=== PATIENT | female | born 1940 | race Caucasian/White ===

== ENCOUNTER 2020-04-09 09:56 | Inpatient (IN) ==
[2020-04-09] MEDS ORDERED: methylPREDNISolone SOD SUC 125 MG/2 ML VIAL IV STA (10:22)
[2020-04-09] MEDS ORDERED: ALBUTEROL/IPRATROPIUM 3 ML NEB RESP TX STA (10:22)
[2020-04-09 10:30] LABS: Basophils # 0.1 10*3/uL (0.0-0.2); Basophils % 0.6 % (0.0-0.8); Eosinophils % 0.2 % (0.00-10.9); Hematocrit 36.6 VOL% (35.7-47.0); Hemoglobin 11.7 GM/DL (12.0-16.0); Immature Granulocytes % 0.4 %; Immature Granulocytes Absolute 0.04 #; Lymphocytes # 0.2 10*3/uL (1.4-4.0); Lymphocytes % 2.3 % (21.3-54.2); Mean Corpuscular Volume 89.1 FL (87-102); Mean Platelet Volume 9.8 FL (9.6-12.0); Monocytes % 0.5 % (1.7-12.7); Platelet Count 313 T/CUMM (130-400); Red Blood Count 4.11 MC/CUMM (3.8-5.5); Red Cell Distribution Width 14.8 % (9.3-17.3); White Blood Count 9.5 T/CUMM (4-12)
[2020-04-09 11:44] LABS: Band Neutrophils 10 % (0-10); Lymphocytes 4 % (20-55); Metamyelocytes 1 %; Segmented Neutrophils 84 % (50-85); Total Cells Counted 100
[2020-04-09 11:45] LABS: Hypochromasia 1+; Microcytosis Slight
[2020-04-09 11:48] LABS: Platelet Estimate Normal
[2020-04-09 12:40] LABS: Albumin 3.4 G/DL (3.4-5.0); Bilirubin,Total 0.8 MG/DL (0.2-1.0); Calcium 8.5 MG/DL (8.5-10.1); Osmolality,Calculated 279.5 MOS/KG (273-304); Potassium 3.6 MMOL/L (3.5-5.1); Total Protein 6.4 G/DL (6.4-8.3)
[2020-04-09] MEDS ORDERED: ACETAMINOPHEN 500 MG TABLET ONE (14:22)
[2020-04-09] MEDS ORDERED: ONDANSETRON 4 MG/2 ML VIAL IV PRN (14:35)
[2020-04-09] MEDS ORDERED: MAGNESIUM SULF RIDER 2 GM in PREMIX 1 EACH IV PRN (14:35)
[2020-04-09] MEDS ORDERED: MAGNESIUM SULF RIDER 4 GM in PREMIX 1 EACH IV PRN (14:35)
[2020-04-09] MEDS ORDERED: ALBUTEROL 2.5 MG/3 ML NEB RESP TX PRN (14:40)
[2020-04-09] MEDS ORDERED: NITROGLYCERIN SL 0.4 MG TABLET SL PRN (14:40)
[2020-04-09] MEDS: SODIUM CHLORIDE 0.45% 1,000 ML IV SCH (16:30)
[2020-04-09] MEDS: methylPREDNISolone SOD SUC 40 MG/1 ML VIAL IV SCH (17:27)
[2020-04-09] MEDS: ENOXAPARIN 40 MG/0.4 ML SYRINGE SUBCUT SCH (20:58)
[2020-04-09] MEDS: MOMETASONE/FORMOTEROL 100-5 INHALER 8.8 GM INH SCH (20:58)
[2020-04-09] MEDS: NITROGLYCERIN 2% OINT 1 INCH/GM PACK TOP SCH (20:59)
[2020-04-09] MEDS: ALBUTEROL 2.5 MG/3 ML NEB RESP TX SCH (21:05)
[2020-04-10] MEDS: methylPREDNISolone SOD SUC 40 MG/1 ML VIAL IV SCH ×3 (01:35→16:11)
[2020-04-10] MEDS: ALBUTEROL 2.5 MG/3 ML NEB RESP TX SCH ×4 (02:26→18:35)
[2020-04-10] MEDS: SODIUM CHLORIDE 0.45% 1,000 ML IV SCH (06:15)
[2020-04-10 07:02] LABS: Risk Ratio 1.77; VLDL CHOLESTEROL 12.4 MG/DL
[2020-04-10] MEDS: MULTIVITAMIN (BEROCCA) TABLET PO SCH (08:39)
[2020-04-10] MEDS: VITAMIN E 400 UNIT CAPSULE PO SCH (08:39)
[2020-04-10] MEDS: MAGNESIUM GLUCONATE 500 MG TABLET PO SCH (08:39)
[2020-04-10] MEDS: CITALOPRAM 20 MG TABLET PO SCH (08:40)
[2020-04-10] MEDS: MELOXICAM 7.5 MG TABLET PO SCH (08:40)
[2020-04-10] MEDS: CHOLECALCIFEROL 1,000 UNIT TABLET PO SCH (08:40)
[2020-04-10] MEDS: MOMETASONE/FORMOTEROL 100-5 INHALER 8.8 GM INH SCH ×2 (08:41→21:44)
[2020-04-10] MEDS: NITROGLYCERIN 2% OINT 1 INCH/GM PACK TOP SCH ×2 (08:43→21:43)
[2020-04-10] MEDS ORDERED: diphenhydrAMINE CAP 25 MG CAPSULE PO ONE (17:16)
[2020-04-10] MEDS ORDERED: POTASSIUM CHLORIDE RIDER 10 MEQ in PREMIX 1 EACH IV PRN (17:16)
[2020-04-10] MEDS ORDERED: DIAZEPAM 5 MG TABLET PO ONE (17:16)
[2020-04-10] MEDS ORDERED: ASPIRIN CHEW 81 MG TABLET PO SCH (17:17)
[2020-04-10] MEDS ORDERED: diphenhydrAMINE CAP 25 MG CAPSULE PO PRN (17:17)
[2020-04-10] MEDS: SODIUM CHLORIDE 0.9% 1,000 ML IV SCH (18:17)
[2020-04-10] MEDS: ENOXAPARIN 40 MG/0.4 ML SYRINGE SUBCUT SCH (21:43)
[2020-04-11] MEDS: methylPREDNISolone SOD SUC 40 MG/1 ML VIAL IV SCH ×3 (02:17→16:55)
[2020-04-11] MEDS: ALBUTEROL 2.5 MG/3 ML NEB RESP TX SCH ×4 (02:29→21:15)
[2020-04-11 05:49] LABS: Basophils % 0.1 % (0.0-0.8); Hematocrit 31.4 VOL% (35.7-47.0); Hemoglobin 10.1 GM/DL (12.0-16.0); Immature Granulocytes Absolute 0.15 #; Lymphocytes # 0.4 10*3/uL (1.4-4.0); Lymphocytes % 2.9 % (21.3-54.2); Mean Corpuscular HGB Conc 32.2 GM/DL (32-36); Mean Corpuscular Volume 89.2 FL (87-102); Mean Platelet Volume 10.9 FL (9.6-12.0); Monocytes % 4.1 % (1.7-12.7); Neutrophils % 91.9 % (38.7-73.9); Platelet Count 274 T/CUMM (130-400); Red Blood Count 3.52 MC/CUMM (3.8-5.5); Red Cell Distribution Width 15.4 % (9.3-17.3); White Blood Count 14.7 T/CUMM (4-12)
[2020-04-11] MEDS ORDERED: diphenhydrAMINE CAP 25 MG CAPSULE PO ONE (06:00)
[2020-04-11] MEDS ORDERED: DIAZEPAM 5 MG TABLET PO ONE ×2 (06:00→07:35)
[2020-04-11 06:12] LABS: Hypochromasia Slight; Lymphocytes 2 % (20-55); Microcytosis Slight; Platelet Estimate Adequate; Segmented Neutrophils 93 % (50-85); Total Cells Counted 100
[2020-04-11 06:16] LABS: Calcium 8.7 MG/DL (8.5-10.1); Osmolality,Calculated 277.8 MOS/KG (273-304); Potassium 4.1 MMOL/L (3.5-5.1)
[2020-04-11] MEDS ORDERED: LIDOCAINE 1% 20 ML VIAL ONE (07:35)
[2020-04-11] MEDS ORDERED: diphenhydrAMINE CAP 50 MG CAPSULE PO ONE (07:35)
[2020-04-11] MEDS ORDERED: HEPARIN/NACL 0.9% 2 UNITS/ML 1,000 ML IV ONE (07:35)
[2020-04-11] MEDS ORDERED: MIDAZOLAM 2 MG/2 ML VIAL ONE (08:08)
[2020-04-11] MEDS ORDERED: fentaNYL 100 MCG/2 ML VIAL ONE (08:08)
[2020-04-11] MEDS ORDERED: NITROGLYCERIN DRIP 50 MG/250 ML BOTTLE IV ONE (08:25)
[2020-04-11] MEDS ORDERED: ZALEPLON 5 MG CAPSULE PO PRN (08:46)
[2020-04-11] MEDS: MOMETASONE/FORMOTEROL 100-5 INHALER 8.8 GM INH SCH ×2 (09:08→21:48)
[2020-04-11] MEDS: SODIUM CHLORIDE 0.9% 1,000 ML IV SCH ×2 (09:22→12:32)
[2020-04-11 09:32] LABS: Bilirubin,Urine Negative (Negative); Blood, Urine Small mg/dL (Negative); Glucose,Urine (UA) Negative (Negative); Ketones,Urine Negative (Negative); Nitrite,Urine Negative (Negative); Protein,Urine Negative; Urine Appearance Slightly Hazy (Clear); Urine Color Straw (Yellow); Urine Specific Gravity 1.014 (1.001-1.035); Urine Urobilinogen < 2.0 EU/DL (0.2-1.0)
[2020-04-11] MEDS: MULTIVITAMIN (BEROCCA) TABLET PO SCH (09:32)
[2020-04-11] MEDS: METOPROLOL TARTRATE 25 MG TABLET PO SCH ×2 (09:32→21:30)
[2020-04-11] MEDS: MELOXICAM 7.5 MG TABLET PO SCH (09:32)
[2020-04-11] MEDS: MAGNESIUM GLUCONATE 500 MG TABLET PO SCH (09:32)
[2020-04-11] MEDS: CITALOPRAM 20 MG TABLET PO SCH (09:32)
[2020-04-11] MEDS: ISOSORBIDE MONONITRATE 30 MG TABLET PO SCH (09:32)
[2020-04-11] MEDS: VITAMIN E 400 UNIT CAPSULE PO SCH (09:32)
[2020-04-11] MEDS: CHOLECALCIFEROL 1,000 UNIT TABLET PO SCH (09:32)
[2020-04-11 09:37] LABS: Squamous Epithelial Cell,Urine Rare /HPF (0-10)
[2020-04-11] MEDS: ACETAMINOPHEN 325 MG TABLET PO PRN ×2 (11:05→21:30)
[2020-04-11] MEDS ORDERED: GLUCAGON 1 MG VIAL IM PRN (13:08)
[2020-04-11] MEDS ORDERED: DEXTROSE 50% 25 GM/50 ML VIAL IV PRN (13:08)
[2020-04-11] MEDS: ROSUVASTATIN 20 MG TABLET PO SCH (21:30)
[2020-04-11] MEDS: ASCORBIC ACID 500 MG TABLET PO SCH (21:30)
[2020-04-12] MEDS: methylPREDNISolone SOD SUC 40 MG/1 ML VIAL IV SCH ×3 (00:01→16:18)
[2020-04-12] MEDS: LORazepam 1 MG TABLET PO PRN ×2 (00:01→21:43)
[2020-04-12] MEDS: ALBUTEROL 2.5 MG/3 ML NEB RESP TX SCH ×4 (00:02→20:00)
[2020-04-12 04:15] LABS: Allen Test Positive; Pt O2 Delivery Device Room Air
[2020-04-12 04:16] LABS: ABG Base Excess 0.4 MMOL/L (-2.5-2.5); ABG HCO3 24.8 MMOL/L (20-26); ABG Oxygen Saturation 95.4 % (95-100); ABG PCO2 36.2 MM HG (35-48); ABG PH 7.436 (7.35-7.45); ABG PO2 76.4 MM HG (80-95); ABG TCO2 21.9 MMOL/L (23-27)
[2020-04-12 05:14] LABS: Hematocrit 30.8 VOL% (35.7-47.0); Hemoglobin 10.2 GM/DL (12.0-16.0); Immature Granulocytes % 0.8 %; Immature Granulocytes Absolute 0.09 #; Lymphocytes # 0.6 10*3/uL (1.4-4.0); Lymphocytes % 5.2 % (21.3-54.2); Mean Corpuscular HGB Conc 33.1 GM/DL (32-36); Mean Corpuscular Volume 86.8 FL (87-102); Mean Platelet Volume 10.7 FL (9.6-12.0); Monocytes % 1.7 % (1.7-12.7); Neutrophils % 92.3 % (38.7-73.9); Platelet Count 295 T/CUMM (130-400); Red Blood Count 3.55 MC/CUMM (3.8-5.5); White Blood Count 11.1 T/CUMM (4-12)
[2020-04-12 05:31] LABS: Albumin 2.8 G/DL (3.4-5.0); Bilirubin,Total 0.6 MG/DL (0.2-1.0); Calcium 8.6 MG/DL (8.5-10.1); Osmolality,Calculated 278.7 MOS/KG (273-304); Potassium 3.7 MMOL/L (3.5-5.1); Total Protein 6.1 G/DL (6.4-8.3)
[2020-04-12 05:37] LABS: Lymphocytes 3 % (20-55); Platelet Estimate Normal; Segmented Neutrophils 97 % (50-85); Total Cells Counted 100
[2020-04-12] MEDS: SODIUM CHLORIDE 0.9% 1,000 ML IV SCH ×2 (06:59→09:54)
[2020-04-12] MEDS: MAGNESIUM GLUCONATE 500 MG TABLET PO SCH (09:35)
[2020-04-12] MEDS: MELOXICAM 7.5 MG TABLET PO SCH (09:36)
[2020-04-12] MEDS: ISOSORBIDE MONONITRATE 30 MG TABLET PO SCH (09:36)
[2020-04-12] MEDS: CHLORHEXIDINE 4% SOLN 118 ML BOTTLE TOP SCH ×2 (09:36→16:17)
[2020-04-12] MEDS: CITALOPRAM 20 MG TABLET PO SCH (09:36)
[2020-04-12] MEDS: ASCORBIC ACID 500 MG TABLET PO SCH ×2 (09:36→21:37)
[2020-04-12] MEDS: METOPROLOL TARTRATE 25 MG TABLET PO SCH ×2 (09:36→21:37)
[2020-04-12] MEDS: VITAMIN E 400 UNIT CAPSULE PO SCH (09:36)
[2020-04-12] MEDS: CHOLECALCIFEROL 1,000 UNIT TABLET PO SCH (09:36)
[2020-04-12] MEDS: MULTIVITAMIN (BEROCCA) TABLET PO SCH (09:36)
[2020-04-12] MEDS: CHLORHEXIDINE 0.12% ORAL RINSE 60 ML BOTTLE SWISH/SPIT SCH ×2 (09:36→21:38)
[2020-04-12] MEDS: MOMETASONE/FORMOTEROL 100-5 INHALER 8.8 GM INH SCH ×2 (09:53→21:38)
[2020-04-12] MEDS: ACETAMINOPHEN 325 MG TABLET PO PRN (10:41)
[2020-04-12] MEDS ORDERED: SODIUM CHLORIDE 0.9% 1,000 ML IV SCH (13:30)
[2020-04-12] MEDS ORDERED: DIAZEPAM 5 MG TABLET PO ONE (16:40)
[2020-04-12] MEDS: ROSUVASTATIN 20 MG TABLET PO SCH (21:37)
[2020-04-12] MEDS: ENOXAPARIN 40 MG/0.4 ML SYRINGE SUBCUT SCH (21:40)
[2020-04-13] MEDS: ALBUTEROL 2.5 MG/3 ML NEB RESP TX SCH ×2 (01:49→11:12)
[2020-04-13] MEDS: methylPREDNISolone SOD SUC 40 MG/1 ML VIAL IV SCH ×3 (02:46→16:46)
[2020-04-13] MEDS ORDERED: PAPAVERINE 60 MG/2 ML VIAL ONE (04:24)
[2020-04-13] MEDS ORDERED: VANCOMYCIN 1,000 MG VIAL ONE (04:25)
[2020-04-13] MEDS ORDERED: VANCOMYCIN 500 MG VIAL ONE (04:25)
[2020-04-13] MEDS: CHLORHEXIDINE 4% SOLN 118 ML BOTTLE TOP SCH (04:50)
[2020-04-13] MEDS ORDERED: DIAZEPAM 5 MG TABLET PO ONE (05:00)
[2020-04-13] MEDS ORDERED: VANCOMYCIN INJ 1,000 MG in SODIUM CHLORIDE 0.9% 250 ML IV ONE (05:00)
[2020-04-13] MEDS: SODIUM CHLORIDE 0.9% 1,000 ML IV SCH (05:54)
[2020-04-13] MEDS ORDERED: MIDAZOLAM 2 MG/2 ML VIAL ONE ×2 (05:55→09:35)
[2020-04-13] MEDS: METOPROLOL TARTRATE 25 MG TABLET PO SCH ×2 (05:55→11:12)
[2020-04-13] MEDS ORDERED: SUFentanil 250 MCG/5 ML AMP ONE (05:56)
[2020-04-13] MEDS ORDERED: MIDAZOLAM 10 MG/2 ML VIAL ONE (05:58)
[2020-04-13] MEDS ORDERED: AMINOCAPROIC ACID 5,000 MG/20 ML VIAL ONE (06:34)
[2020-04-13] MEDS ORDERED: LIDOCAINE 2% 5 ML VIAL ONE ×2 (06:34→10:09)
[2020-04-13] MEDS ORDERED: SODIUM CHLORIDE 0.9% 1,000 ML IV ONE ×2 (06:34→10:49)
[2020-04-13] MEDS ORDERED: CALCIUM CHLORIDE 1,000 MG/10 ML VIAL IV ONE ×2 (06:34→10:43)
[2020-04-13] MEDS ORDERED: PHENYLEPHRINE DRIP 0 MG/0 ML PREMIX IV ONE (06:34)
[2020-04-13] MEDS ORDERED: VECURONIUM 10 MG VIAL IV ONE (06:34)
[2020-04-13] MEDS ORDERED: HEPARIN/NACL 0.9% 2 UNITS/ML 500 ML IV ONE (06:34)
[2020-04-13] MEDS ORDERED: ETOMIDATE 40 MG/20 ML VIAL IV ONE (06:34)
[2020-04-13] MEDS ORDERED: LACTATED RINGERS 1,000 ML IV ONE (06:34)
[2020-04-13] MEDS ORDERED: PHENYLEPHRINE 1 MG/10 ML SYRINGE IV ONE ×3 (06:34→12:03)
[2020-04-13] MEDS ORDERED: PHENYLEPHRINE DRIP 40 MG/250 ML PREMIX IV ONE (07:19)
[2020-04-13] MEDS ORDERED: NITROPRUSSIDE 50 MG/2 ML VIAL ONE (07:19)
[2020-04-13] MEDS ORDERED: CALCIUM CHLORIDE 1,000 MG/10 ML SYRINGE IV ONE (07:19)
[2020-04-13] MEDS ORDERED: POTASSIUM CHLORIDE RIDER 100 ML IV ONE (07:19)
[2020-04-13] MEDS ORDERED: SODIUM BICARBONATE 50 MEQ/50 ML VIAL IV ONE ×2 (07:19→10:10)
[2020-04-13] MEDS ORDERED: ALBUMIN 5% 12.5 GM/250 ML VIAL IV ONE ×2 (07:20→14:30)
[2020-04-13] MEDS ORDERED: ePHEDrine 50 MG/ML VIAL ONE (07:21)
[2020-04-13 07:53] LABS: ABG Base Excess 0.5 MMOL/L (-2.5-2.5); ABG HCO3 24.6 MMOL/L (20-26); ABG PCO2 41.9 MM HG (35-48); ABG PH 7.392 (7.35-7.45); ABG PO2 50.4 MM HG (80-95); ABG TCO2 23.4 MMOL/L (23-27); Glucose Heart Surgery 113 MG/DL (74-106); Hematocrit Heart Surgery 29.7 PERCENT (37-47); Hemoglobin Heart Surgery 9.6 G/DL (12.0-16.0); PCO2 Patient Temp Arterial 41.9 MMHG; PH Patient Temp Arterial 7.392; PO2 Patient Temp Arterial 50.4 MM HG; Patient Temperature 37 CELCIUS; Potassium Heart/CVR 3.3 MMOL/L (3.5-5.1); Sodium Heart/CVR 137 MMOL/L (135-145)
[2020-04-13 08:02] LABS: Bilirubin,Urine Negative (Negative); Blood, Urine Negative (Negative); Glucose,Urine (UA) Negative (Negative); Ketones,Urine Negative (Negative); Nitrite,Urine Negative (Negative); Protein,Urine Negative; Urine Appearance CLEAR (Clear); Urine Color Colorless (Yellow); Urine Specific Gravity 1.008 (1.001-1.035); Urine Urobilinogen < 2.0 EU/DL (0.2-1.0)
[2020-04-13 08:39] LABS: Hematocrit Heart Surgery 28.8 PERCENT (37-47); Hemoglobin Heart Surgery 9.3 G/DL (12.0-16.0); VBG Base Excess 0.2 MEQ/L (0-4); VBG HCO3 24.3 MEQ/L (24-28); VBG Oxygen Saturation 79.2 %; VBG PCO2 34.4 MMHG (41-51); VBG PH 7.449; VBG PO2 41.5 MMHG (17-40); VBG Total CO2 21.9 MMOL/L
[2020-04-13 08:40] LABS: PCO2 Patient Temp Venous 29.8 MM HG; PH Patient Temp Venous 7.493; PO2 Patient Temp Venous 33.6 MM HG
[2020-04-13] MEDS ORDERED: HYDROCORTISONE 100 MG VIAL ONE (09:02)
[2020-04-13 09:13] LABS: Hematocrit Heart Surgery 27.5 PERCENT (37-47); Hemoglobin Heart Surgery 8.9 G/DL (12.0-16.0); PCO2 Patient Temp Venous 28.3 MM HG; PH Patient Temp Venous 7.525; VBG Base Excess 1.2 MEQ/L (0-4); VBG HCO3 25.3 MEQ/L (24-28); VBG Oxygen Saturation 81.6 %; VBG PCO2 32.8 MMHG (41-51); VBG PH 7.48; VBG PO2 43.1 MMHG (17-40); VBG Total CO2 22.5 MMOL/L
[2020-04-13 09:47] LABS: Hemoglobin Heart Surgery 8.6 G/DL (12.0-16.0); PCO2 Patient Temp Venous 36.3 MM HG; PH Patient Temp Venous 7.44; PO2 Patient Temp Venous 34.5 MM HG; Potassium Heart/CVR 3.8 MMOL/L (3.5-5.1); VBG Base Excess -0.1 MEQ/L (0-4); VBG HCO3 24.5 MEQ/L (24-28); VBG Oxygen Saturation 72.1 %; VBG PCO2 39.6 MMHG (41-51); VBG PH 7.41; VBG PO2 39.7 MMHG (17-40); VBG Total CO2 25.8 MMOL/L
[2020-04-13] MEDS ORDERED: THROMBIN TOPICAL (RECOMBINANT) 5,000 UNIT VIAL TOP ONE (09:52)
[2020-04-13] MEDS ORDERED: MAGNESIUM SULFATE 5 GM/10 ML VIAL IV ONE (10:09)
[2020-04-13] MEDS ORDERED: MANNITOL 100 GM/500 ML BAG IV ONE (10:09)
[2020-04-13] MEDS ORDERED: PROTAMINE SULFATE 250 MG/25 ML VIAL IV ONE (10:09)
[2020-04-13] MEDS ORDERED: methylPREDNISolone SOD SUC 1,000 MG/8 ML VIAL ONE (10:09)
[2020-04-13] MEDS ORDERED: ALBUMIN 25% 25 GM/100 ML VIAL IV ONE (10:09)
[2020-04-13] MEDS ORDERED: DEXTROSE 5% KCL 20 MEQ 20 MEQ/1,000 ML BAG IV ONE (10:09)
[2020-04-13] MEDS ORDERED: FUROSEMIDE 20 MG/2 ML VIAL ONE (10:10)
[2020-04-13] MEDS ORDERED: HEPARIN 10,000 UNIT/10 ML VIAL ONE (10:10)
[2020-04-13 10:19] LABS: ABG Base Excess -5.7 MMOL/L (-2.5-2.5); ABG HCO3 19.4 MMOL/L (20-26); ABG Oxygen Saturation 66.1 % (95-100); ABG PCO2 35.3 MM HG (35-48); ABG PH 7.348 (7.35-7.45); ABG TCO2 18.5 MMOL/L (23-27); Glucose Heart Surgery 224 MG/DL (74-106); Hematocrit Heart Surgery 21.5 PERCENT (37-47); Hemoglobin Heart Surgery 6.9 G/DL (12.0-16.0); Ionized Calcium Arterial 1.24 MMOL/L (1.21-1.46); PCO2 Patient Temp Arterial 35.3 MMHG; PH Patient Temp Arterial 7.348; Patient Temperature 37 CELCIUS; Potassium Heart/CVR 3.6 MMOL/L (3.5-5.1); Sodium Heart/CVR 133 MMOL/L (135-145)
[2020-04-13] MEDS ORDERED: ACETAMINOPHEN 650 MG SUPP RECTAL PRN (10:34)
[2020-04-13] MEDS ORDERED: INSULIN REGULAR 100 UNIT/ML IV ONE (10:34)
[2020-04-13] MEDS ORDERED: CHLORHEXIDINE 4% SOLN 118 ML BOTTLE TOP PRN (10:34)
[2020-04-13] MEDS ORDERED: VECURONIUM 10 MG VIAL IV PRN ×2 (10:34)
[2020-04-13] MEDS ORDERED: NITROPRUSSIDE 100 MG in DEXTROSE 5% 250 ML IV PRN (10:34)
[2020-04-13] MEDS ORDERED: ONDANSETRON 4 MG/2 ML VIAL IV PRN (10:34)
[2020-04-13] MEDS ORDERED: INSULIN REGULAR 100 UNIT/ML IV PRN (10:34)
[2020-04-13] MEDS ORDERED: CALCIUM CHLORIDE 1,000 MG/10 ML SYRINGE IV PRN (10:34)
[2020-04-13] MEDS ORDERED: MAGNESIUM SULF RIDER 2 GM in PREMIX 1 EACH IV PRN (10:34)
[2020-04-13] MEDS ORDERED: MAGNESIUM SULF RIDER 4 GM in PREMIX 1 EACH IV PRN (10:34)
[2020-04-13] MEDS ORDERED: DEXTROSE 50% 25 GM/50 ML VIAL IV PRN ×2 (10:34)
[2020-04-13] MEDS ORDERED: PHENYLEPHRINE DRIP 40 MG/250 ML PREMIX IV PRN (10:34)
[2020-04-13] MEDS ORDERED: MORPHINE 10 MG/1 ML VIAL IV PRN (10:34)
[2020-04-13] MEDS ORDERED: MIDAZOLAM 10 MG/2 ML VIAL IV PRN (10:34)
[2020-04-13] MEDS: MAGNESIUM GLUCONATE 500 MG TABLET PO SCH (11:12)
[2020-04-13] MEDS: MOMETASONE/FORMOTEROL 100-5 INHALER 8.8 GM INH SCH (11:12)
[2020-04-13] MEDS: MELOXICAM 7.5 MG TABLET PO SCH (11:12)
[2020-04-13] MEDS: CITALOPRAM 20 MG TABLET PO SCH (11:12)
[2020-04-13] MEDS: MULTIVITAMIN (BEROCCA) TABLET PO SCH (11:12)
[2020-04-13] MEDS: ISOSORBIDE MONONITRATE 30 MG TABLET PO SCH (11:12)
[2020-04-13] MEDS: CHLORHEXIDINE 0.12% ORAL RINSE 60 ML BOTTLE SWISH/SPIT SCH ×2 (11:13→21:35)
[2020-04-13] MEDS: VITAMIN E 400 UNIT CAPSULE PO SCH (11:13)
[2020-04-13] MEDS: CHOLECALCIFEROL 1,000 UNIT TABLET PO SCH (11:13)
[2020-04-13] MEDS: ASCORBIC ACID 500 MG TABLET PO SCH (11:13)
[2020-04-13] MEDS ORDERED: NITROGLYCERIN DRIP 50 MG/250 ML BOTTLE IV ONE (11:30)
[2020-04-13] MEDS ORDERED: PROTAMINE SULFATE 50 MG/5 ML VIAL IV ONE ×2 (11:58→12:21)
[2020-04-13] MEDS ORDERED: SEVOFLURANE 1 UNIT/15 MINUTE INH ONE (12:03)
[2020-04-13] MEDS ORDERED: PHENYLEPHRINE DRIP 20 MG/250 ML PREMIX IV ONE (12:03)
[2020-04-13 12:11] LABS: ABG Base Excess 3.2 MMOL/L (-2.5-2.5); ABG HCO3 27.3 MMOL/L (20-26); ABG PCO2 32.7 MM HG (35-48); ABG PH 7.509 (7.35-7.45); ABG TCO2 23.8 MMOL/L (23-27); Glucose Heart Surgery 247 MG/DL (74-106); Potassium Heart/CVR 2.9 MMOL/L (3.5-5.1)
[2020-04-13 12:14] LABS: Basophils % 0.1 % (0.0-0.8); Eosinophils % 0.2 % (0.00-10.9); Hematocrit 26.2 VOL% (35.7-47.0); Hemoglobin 9.1 GM/DL (12.0-16.0); Immature Granulocytes % 1.9 %; Immature Granulocytes Absolute 0.19 #; Lymphocytes # 1.5 10*3/uL (1.4-4.0); Lymphocytes % 15.7 % (21.3-54.2); Mean Corpuscular HGB Conc 34.7 GM/DL (32-36); Mean Corpuscular Volume 86.8 FL (87-102); Mean Platelet Volume 10.1 FL (9.6-12.0); Monocytes % 4.5 % (1.7-12.7); Neutrophils % 77.6 % (38.7-73.9); Platelet Count 197 T/CUMM (130-400); Red Blood Count 3.02 MC/CUMM (3.8-5.5); Red Cell Distribution Width 14.3 % (9.3-17.3); White Blood Count 9.8 T/CUMM (4-12)
[2020-04-13] MEDS: SODIUM CHLORIDE 0.45% 1,000 ML IV SCH ×2 (12:18)
[2020-04-13] MEDS: POTASSIUM CHLORIDE RIDER 20 MEQ in PREMIX 1 EACH IV PRN ×3 (12:18→15:26)
[2020-04-13 12:28] LABS: INR 1.6; PT Patient Result 16.3 SECS (9.8-11.9); Partial Thromboplastin Time 31.9 SECS (23.9-33.8)
[2020-04-13 12:33] LABS: Hypochromasia 1+; Lymphocytes 15 % (20-55); Microcytosis 1+; Nucleated Red Blood Cells 1 (0-5); Platelet Estimate Adequate; Segmented Neutrophils 78 % (50-85); Total Cells Counted 100
[2020-04-13 12:39] LABS: CKMB % 13.2 %
[2020-04-13 12:42] LABS: Albumin 2.2 G/DL (3.4-5.0); Bilirubin,Total 0.7 MG/DL (0.2-1.0); Calcium 7.2 MG/DL (8.5-10.1); Potassium 2.9 MMOL/L (3.5-5.1); Total Protein 4.3 G/DL (6.4-8.3)
[2020-04-13 12:45] LABS: Troponin I 7.82 NG/ML (0.00-0.045)
[2020-04-13] MEDS: NITROGLYCERIN DRIP 50 MG/250 ML BOTTLE IV PRN (13:00)
[2020-04-13] MEDS: ALBUMIN 5% 12.5 GM in PREMIX 1 EACH IV PRN ×3 (13:39→16:59)
[2020-04-13 13:53] LABS: VBG Base Excess 1.9 MEQ/L (0-4); VBG HCO3 26.1 MEQ/L (24-28); VBG PCO2 20.3 MMHG (41-51); VBG PH 7.638; VBG Total CO2 19.8 MMOL/L
[2020-04-13] MEDS: POTASSIUM CHLORIDE RIDER 10 MEQ in PREMIX 1 EACH IV PRN ×2 (14:18→16:47)
[2020-04-13] MEDS: MIDAZOLAM 2 MG/2 ML VIAL IV PRN ×3 (14:22→17:50)
[2020-04-13] MEDS: LACTATED RINGERS 250 ML IV PRN ×5 (14:50→18:20)
[2020-04-13 14:53] LABS: ABG Base Excess 3.3 MMOL/L (-2.5-2.5); ABG HCO3 27.4 MMOL/L (20-26); ABG Oxygen Saturation 99.7 % (95-100); ABG PCO2 34.9 MM HG (35-48); ABG PH 7.489 (7.35-7.45); ABG TCO2 24.3 MMOL/L (23-27); Glucose Heart Surgery 205 MG/DL (74-106); Hematocrit Heart Surgery 28.1 PERCENT (37-47); Hemoglobin Heart Surgery 9.1 G/DL (12.0-16.0); Potassium Heart/CVR 3.6 MMOL/L (3.5-5.1)
[2020-04-13] MEDS: MORPHINE 4 MG/1 ML VIAL IV PRN ×3 (14:55→20:27)
[2020-04-13] MEDS: INSULIN REGULAR DRIP 100 ML IV SCH (15:09)
[2020-04-13 17:07] LABS: ABG Base Excess 3.4 MMOL/L (-2.5-2.5); ABG HCO3 27.5 MMOL/L (20-26); ABG Oxygen Saturation 99.9 % (95-100); ABG PCO2 37.6 MM HG (35-48); ABG PH 7.468 (7.35-7.45); ABG TCO2 24.6 MMOL/L (23-27); Glucose Heart Surgery 153 MG/DL (74-106); Potassium Heart/CVR 4.4 MMOL/L (3.5-5.1)
[2020-04-13 18:59] LABS: ABG Base Excess 4.3 MMOL/L (-2.5-2.5); ABG HCO3 28.3 MMOL/L (20-26); ABG PH 7.452 (7.35-7.45); ABG TCO2 25.9 MMOL/L (23-27); Glucose Heart Surgery 93 MG/DL (74-106); Hematocrit Heart Surgery 30.7 PERCENT (37-47); Hemoglobin Heart Surgery 9.9 G/DL (12.0-16.0)
[2020-04-13 19:27] LABS: CKMB % 11.1 %
[2020-04-13 19:29] LABS: Troponin I 17.2 NG/ML (0.00-0.045)
[2020-04-13] MEDS: INSULIN REGULAR 100 UNIT/ML SUBCUT SCH (20:28)
[2020-04-13] MEDS ORDERED: FUROSEMIDE 40 MG/4 ML VIAL IV ONE (21:05)
[2020-04-13] MEDS: VANCOMYCIN INJ 1,000 MG in SODIUM CHLORIDE 0.9% 250 ML IV SCH (21:36)
[2020-04-13 22:44] LABS: ABG Base Excess 4.3 MMOL/L (-2.5-2.5); ABG HCO3 28.3 MMOL/L (20-26); ABG Oxygen Saturation 99.5 % (95-100); ABG PCO2 39.7 MM HG (35-48); ABG PH 7.461 (7.35-7.45); ABG TCO2 25.6 MMOL/L (23-27); Glucose Heart Surgery 142 MG/DL (74-106); Hematocrit Heart Surgery 31.3 PERCENT (37-47); Hemoglobin Heart Surgery 10.1 G/DL (12.0-16.0); Potassium Heart/CVR 3.8 MMOL/L (3.5-5.1)
[2020-04-14] MEDS: INSULIN REGULAR 100 UNIT/ML SUBCUT SCH ×6 (00:36→20:24)
[2020-04-14 01:01] LABS: ABG Base Excess 5.2 MMOL/L (-2.5-2.5); ABG HCO3 29.2 MMOL/L (20-26); ABG Oxygen Saturation 99.1 % (95-100); ABG PCO2 43.9 MM HG (35-48); ABG PH 7.442 (7.35-7.45); ABG TCO2 27.1 MMOL/L (23-27); Glucose Heart Surgery 159 MG/DL (74-106); Hematocrit Heart Surgery 31.8 PERCENT (37-47); Hemoglobin Heart Surgery 10.3 G/DL (12.0-16.0); Potassium Heart/CVR 3.9 MMOL/L (3.5-5.1)
[2020-04-14] MEDS: methylPREDNISolone SOD SUC 40 MG/1 ML VIAL IV SCH ×3 (02:18→16:35)
[2020-04-14] MEDS: ALBUMIN 5% 12.5 GM in PREMIX 1 EACH IV PRN (04:28)
[2020-04-14 04:40] LABS: Basophils % 0.1 % (0.0-0.8); Hematocrit 30.8 VOL% (35.7-47.0); Hemoglobin 10.3 GM/DL (12.0-16.0); Immature Granulocytes % 0.7 %; Immature Granulocytes Absolute 0.08 #; Lymphocytes # 0.7 10*3/uL (1.4-4.0); Mean Corpuscular HGB Conc 33.4 GM/DL (32-36); Mean Corpuscular Volume 85.6 FL (87-102); Mean Platelet Volume 10.7 FL (9.6-12.0); Monocytes % 7.4 % (1.7-12.7); Neutrophils % 85.8 % (38.7-73.9); Platelet Count 156 T/CUMM (130-400); Red Cell Distribution Width 15.1 % (9.3-17.3); White Blood Count 11.8 T/CUMM (4-12)
[2020-04-14 05:36] LABS: Albumin 3.5 G/DL (3.4-5.0); Bilirubin,Direct 0.37 MG/DL (0.0-0.20); Bilirubin,Total 1.2 MG/DL (0.2-1.0); Calcium 7.6 MG/DL (8.5-10.1); Osmolality,Calculated 283.4 MOS/KG (273-304); Potassium 4.1 MMOL/L (3.5-5.1); Total Protein 5.6 G/DL (6.4-8.3)
[2020-04-14] MEDS ORDERED: ACETAMINOPHEN 325 MG TABLET PO PRN (05:46)
[2020-04-14] MEDS: MORPHINE 4 MG/1 ML VIAL IV PRN (06:18)
[2020-04-14] MEDS: NITROGLYCERIN DRIP 50 MG/250 ML BOTTLE IV PRN ×2 (06:26→21:38)
[2020-04-14 06:48] LABS: Troponin I 32.4 NG/ML (0.00-0.045)
[2020-04-14] MEDS ORDERED: oxyCODONE/ACETAMINOPHEN 5-325 MG TABLET PO PRN ×2 (07:40→08:14)
[2020-04-14] MEDS: ASPIRIN 325 MG TABLET PO SCH (09:07)
[2020-04-14] MEDS: METOPROLOL TARTRATE 25 MG TABLET PO SCH ×2 (09:07→20:25)
[2020-04-14] MEDS: MAGNESIUM GLUCONATE 500 MG TABLET PO SCH (09:08)
[2020-04-14] MEDS: ASCORBIC ACID 500 MG TABLET PO SCH ×2 (09:08→20:25)
[2020-04-14] MEDS: CHLORHEXIDINE 0.12% ORAL RINSE 60 ML BOTTLE SWISH/SPIT SCH ×2 (09:16→21:38)
[2020-04-14] MEDS: VANCOMYCIN INJ 1,000 MG in SODIUM CHLORIDE 0.9% 250 ML IV SCH ×2 (10:21→22:11)
[2020-04-14 10:56] LABS: CKMB % 10.2 %
[2020-04-14] MEDS ORDERED: ISOSORBIDE MONONITRATE 30 MG TABLET PO ONE (11:10)
[2020-04-14] MEDS: INSULIN REGULAR DRIP 100 ML IV SCH (11:20)
[2020-04-14] MEDS: SODIUM CHLORIDE 0.45% 1,000 ML IV SCH ×2 (11:43)
[2020-04-14] MEDS ORDERED: FUROSEMIDE 40 MG/4 ML VIAL IV ONE (11:43)
[2020-04-14] MEDS: amLODIPine 10 MG TABLET PO SCH (16:35)
[2020-04-14] MEDS: CITALOPRAM 20 MG TABLET PO SCH (20:25)
[2020-04-14] MEDS ORDERED: hydrALAZINE 20 MG/1 ML VIAL IV PRN (21:15)
[2020-04-15] MEDS: INSULIN REGULAR 100 UNIT/ML SUBCUT SCH ×3 (01:31→11:08)
[2020-04-15] MEDS: methylPREDNISolone SOD SUC 40 MG/1 ML VIAL IV SCH ×3 (01:31→17:47)
[2020-04-15] MEDS: MORPHINE 4 MG/1 ML VIAL IV PRN (02:11)
[2020-04-15 03:29] LABS: Basophils % 0.1 % (0.0-0.8); Hematocrit 32.8 VOL% (35.7-47.0); Hemoglobin 10.8 GM/DL (12.0-16.0); Immature Granulocytes % 1.4 %; Immature Granulocytes Absolute 0.23 #; Lymphocytes # 0.9 10*3/uL (1.4-4.0); Lymphocytes % 5.1 % (21.3-54.2); Mean Corpuscular HGB Conc 32.9 GM/DL (32-36); Mean Corpuscular Volume 86.8 FL (87-102); Mean Platelet Volume 10.8 FL (9.6-12.0); Monocytes % 5.6 % (1.7-12.7); NRBC # 0.02 10*3/uL; Neutrophils % 87.8 % (38.7-73.9); Platelet Count 185 T/CUMM (130-400); Red Blood Count 3.78 MC/CUMM (3.8-5.5); Red Cell Distribution Width 15.4 % (9.3-17.3); White Blood Count 16.9 T/CUMM (4-12)
[2020-04-15 04:00] LABS: Albumin 3.2 G/DL (3.4-5.0); Bilirubin,Direct 0.32 MG/DL (0.0-0.20); Bilirubin,Total 1.1 MG/DL (0.2-1.0); Calcium 8.2 MG/DL (8.5-10.1); Potassium 3.8 MMOL/L (3.5-5.1); Total Protein 6.1 G/DL (6.4-8.3)
[2020-04-15] MEDS ORDERED: PHENAZOPYRIDINE 95 MG TABLET PO SCH (08:00)
[2020-04-15] MEDS ORDERED: ISOSORBIDE MONONITRATE 30 MG TABLET PO SCH (09:00)
[2020-04-15] MEDS ORDERED: MAGNESIUM SULF RIDER 2 GM in PREMIX 1 EACH IV PRN (09:41)
[2020-04-15] MEDS ORDERED: MAGNESIUM HYDROXIDE SUSP 30 ML UDCUP PO PRN (09:41)
[2020-04-15] MEDS ORDERED: SODIUM CHLOR 0.45% KCL 20 MEQ 20 MEQ/1,000 ML BAG IV SCH (09:41)
[2020-04-15] MEDS ORDERED: ACETAMINOPHEN 325 MG TABLET PO PRN (09:41)
[2020-04-15] MEDS ORDERED: ALUMINUM/MAGNES/SIMETH MAX STR 30 ML UDCUP PO PRN (09:41)
[2020-04-15] MEDS ORDERED: ONDANSETRON 4 MG/2 ML VIAL IV PRN (09:41)
[2020-04-15] MEDS ORDERED: ZALEPLON 5 MG CAPSULE PO PRN (09:41)
[2020-04-15] MEDS ORDERED: DEXTROSE 50% 25 GM/50 ML VIAL IV PRN (09:41)
[2020-04-15] MEDS ORDERED: MAGNESIUM SULF RIDER 4 GM in PREMIX 1 EACH IV PRN (09:41)
[2020-04-15] MEDS ORDERED: POTASSIUM CHLORIDE 20 MEQ TABLET PO PRN (09:41)
[2020-04-15] MEDS ORDERED: GLUCAGON 1 MG VIAL IM PRN (09:41)
[2020-04-15] MEDS: MAGNESIUM GLUCONATE 500 MG TABLET PO SCH (10:38)
[2020-04-15] MEDS: ASCORBIC ACID 500 MG TABLET PO SCH ×2 (10:38→20:55)
[2020-04-15] MEDS: VANCOMYCIN INJ 1,000 MG in SODIUM CHLORIDE 0.9% 250 ML IV SCH (10:39)
[2020-04-15] MEDS: ASPIRIN 325 MG TABLET PO SCH (10:39)
[2020-04-15] MEDS: METOPROLOL TARTRATE 25 MG TABLET PO SCH ×2 (10:39→20:55)
[2020-04-15] MEDS: amLODIPine 10 MG TABLET PO SCH (11:09)
[2020-04-15] MEDS: CHLORHEXIDINE 0.12% ORAL RINSE 60 ML BOTTLE SWISH/SPIT SCH ×2 (11:09→20:55)
[2020-04-15] MEDS: ALBUTEROL/IPRATROPIUM 3 ML NEB RESP TX SCH ×2 (14:19→20:00)
[2020-04-15] MEDS: CITALOPRAM 20 MG TABLET PO SCH (20:55)
[2020-04-16] MEDS: ALBUTEROL/IPRATROPIUM 3 ML NEB RESP TX SCH ×4 (00:10→19:15)
[2020-04-16] MEDS: methylPREDNISolone SOD SUC 40 MG/1 ML VIAL IV SCH ×3 (02:14→21:31)
[2020-04-16] MEDS ORDERED: FUROSEMIDE 40 MG/4 ML VIAL IV ONE (06:00)
[2020-04-16 06:12] LABS: Basophils % 0.1 % (0.0-0.8); Hematocrit 29.9 VOL% (35.7-47.0); Hemoglobin 9.6 GM/DL (12.0-16.0); Immature Granulocytes % 1.3 %; Immature Granulocytes Absolute 0.14 #; Lymphocytes # 0.5 10*3/uL (1.4-4.0); Lymphocytes % 4.8 % (21.3-54.2); Mean Corpuscular HGB Conc 32.1 GM/DL (32-36); Mean Corpuscular Volume 88.5 FL (87-102); Monocytes % 5.4 % (1.7-12.7); Neutrophils % 88.4 % (38.7-73.9); Platelet Count 176 T/CUMM (130-400); Red Blood Count 3.38 MC/CUMM (3.8-5.5); Red Cell Distribution Width 15.3 % (9.3-17.3); White Blood Count 10.5 T/CUMM (4-12)
[2020-04-16 08:00] LABS: Albumin 2.7 G/DL (3.4-5.0); Bilirubin,Direct 0.19 MG/DL (0.0-0.20); Bilirubin,Total 1.1 MG/DL (0.2-1.0); Calcium 8.4 MG/DL (8.5-10.1); Osmolality,Calculated 285.5 MOS/KG (273-304); Potassium 3.5 MMOL/L (3.5-5.1); Total Protein 5.3 G/DL (6.4-8.3)
[2020-04-16 08:13] LABS: Albumin 2.7 G/DL (3.4-5.0); Bilirubin,Direct 0.21 MG/DL (0.0-0.20); Bilirubin,Indirect 0.4 MG/DL (0.0-1.0); Bilirubin,Total 0.6 MG/DL (0.2-1.0); CKMB % 4.2 %; Total Protein 5.5 G/DL (6.4-8.3)
[2020-04-16 08:14] LABS: Troponin I 9.49 NG/ML (0.00-0.045)
[2020-04-16] MEDS: METOPROLOL TARTRATE 25 MG TABLET PO SCH ×2 (09:16→21:31)
[2020-04-16] MEDS: ISOSORBIDE MONONITRATE 30 MG TABLET PO SCH (09:16)
[2020-04-16] MEDS: ASCORBIC ACID 500 MG TABLET PO SCH ×2 (09:16→21:30)
[2020-04-16] MEDS: MAGNESIUM GLUCONATE 500 MG TABLET PO SCH (09:16)
[2020-04-16] MEDS: FERROUS SULFATE 325 MG TABLET PO SCH (09:17)
[2020-04-16] MEDS: amLODIPine 5 MG TABLET PO SCH (09:17)
[2020-04-16] MEDS: ASPIRIN 325 MG TABLET PO SCH (09:17)
[2020-04-16] MEDS: PANTOPRAZOLE 40 MG TABLET PO SCH (09:17)
[2020-04-16] MEDS: DOCUSATE SODIUM 100 MG CAPSULE PO SCH (09:17)
[2020-04-16] MEDS: CHLORHEXIDINE 0.12% ORAL RINSE 60 ML BOTTLE SWISH/SPIT SCH ×2 (09:19→21:31)
[2020-04-16] MEDS ORDERED: POTASSIUM CHLORIDE 20 MEQ TABLET PO ONE (12:06)
[2020-04-16] MEDS: ROSUVASTATIN 20 MG TABLET PO SCH (21:30)
[2020-04-16] MEDS: CITALOPRAM 20 MG TABLET PO SCH (21:30)
[2020-04-17] MEDS: ALBUTEROL/IPRATROPIUM 3 ML NEB RESP TX SCH ×4 (00:09→19:16)
[2020-04-17 07:04] LABS: Basophils % 0.1 % (0.0-0.8); Hematocrit 29.6 VOL% (35.7-47.0); Hemoglobin 9.6 GM/DL (12.0-16.0); Immature Granulocytes % 1.2 %; Immature Granulocytes Absolute 0.12 #; Lymphocytes # 0.4 10*3/uL (1.4-4.0); Lymphocytes % 3.6 % (21.3-54.2); Mean Corpuscular HGB Conc 32.4 GM/DL (32-36); Mean Corpuscular Volume 89.4 FL (87-102); Mean Platelet Volume 10.9 FL (9.6-12.0); Monocytes % 5.1 % (1.7-12.7); Platelet Count 230 T/CUMM (130-400); Red Blood Count 3.31 MC/CUMM (3.8-5.5); Red Cell Distribution Width 15.6 % (9.3-17.3); White Blood Count 10.3 T/CUMM (4-12)
[2020-04-17 07:16] LABS: Alanine Aminotransferase 59 U/L (13-56); Albumin 2.7 G/DL (3.4-5.0); Alkaline Phosphatase 71 U/L (45-117); Aspartate Amino Transferase 36 U/L (0-37); Bilirubin,Indirect 0.6 MG/DL (0.0-1.0); Blood Urea Nitrogen 35 MG/DL (7-18); Calcium 8.3 MG/DL (8.5-10.1); Carbon Dioxide 32 MMOL/L (21-32); Estimated Glom Filtration Rate 71 ML/MIN; Glucose 148 MG/DL (74-106); Osmolality,Calculated 291.3 MOS/KG (273-304); Potassium 3.7 MMOL/L (3.5-5.1); Sodium 141 MMOL/L (136-145); Total Protein 5.4 G/DL (6.4-8.3)
[2020-04-17] MEDS: MAGNESIUM GLUCONATE 500 MG TABLET PO SCH (09:28)
[2020-04-17] MEDS: ISOSORBIDE MONONITRATE 30 MG TABLET PO SCH (09:29)
[2020-04-17] MEDS: DOCUSATE SODIUM 100 MG CAPSULE PO SCH (09:29)
[2020-04-17] MEDS: FERROUS SULFATE 325 MG TABLET PO SCH (09:29)
[2020-04-17] MEDS: ASPIRIN 325 MG TABLET PO SCH (09:29)
[2020-04-17] MEDS: ASCORBIC ACID 500 MG TABLET PO SCH ×2 (09:29→21:23)
[2020-04-17] MEDS: PANTOPRAZOLE 40 MG TABLET PO SCH (09:29)
[2020-04-17] MEDS: amLODIPine 5 MG TABLET PO SCH (09:30)
[2020-04-17] MEDS: CHLORHEXIDINE 0.12% ORAL RINSE 60 ML BOTTLE SWISH/SPIT SCH ×2 (09:30→21:28)
[2020-04-17] MEDS: methylPREDNISolone SOD SUC 40 MG/1 ML VIAL IV SCH ×2 (09:30→21:24)
[2020-04-17] MEDS: METOPROLOL TARTRATE 25 MG TABLET PO SCH (09:30)
[2020-04-17] MEDS ORDERED: POTASSIUM CHLORIDE 20 MEQ TABLET PO ONE (11:24)
[2020-04-17] MEDS: METOPROLOL TARTRATE 50 MG TABLET PO SCH (21:23)
[2020-04-17] MEDS: CITALOPRAM 20 MG TABLET PO SCH (21:23)
[2020-04-17] MEDS: ROSUVASTATIN 20 MG TABLET PO SCH (21:23)
[2020-04-18] MEDS: ALBUTEROL/IPRATROPIUM 3 ML NEB RESP TX SCH ×4 (00:24→19:18)
[2020-04-18 05:46] LABS: Basophils % 0.1 % (0.0-0.8); Hematocrit 31.2 VOL% (35.7-47.0); Hemoglobin 9.7 GM/DL (12.0-16.0); Immature Granulocytes % 1.8 %; Immature Granulocytes Absolute 0.22 #; Lymphocytes # 0.5 10*3/uL (1.4-4.0); Lymphocytes % 3.9 % (21.3-54.2); Mean Corpuscular HGB Conc 31.1 GM/DL (32-36); Mean Corpuscular Volume 92.3 FL (87-102); Mean Platelet Volume 10.4 FL (9.6-12.0); Monocytes % 4.1 % (1.7-12.7); NRBC # 0.02 10*3/uL; Neutrophils % 90.1 % (38.7-73.9); Platelet Count 329 T/CUMM (130-400); Red Blood Count 3.38 MC/CUMM (3.8-5.5); Red Cell Distribution Width 15.6 % (9.3-17.3); White Blood Count 12.2 T/CUMM (4-12)
[2020-04-18 06:07] LABS: Calcium 8.4 MG/DL (8.5-10.1); Osmolality,Calculated 290.1 MOS/KG (273-304); Potassium 4.5 MMOL/L (3.5-5.1)
[2020-04-18 06:17] LABS: Band Neutrophils 2 % (0-10); Hypochromasia 1+; Lymphocytes 4 % (20-55); Microcytosis 1+; Ovalocytes Slight; Segmented Neutrophils 93 % (50-85); Target Cells Slight; Total Cells Counted 100
[2020-04-18 06:18] LABS: Platelet Estimate Normal
[2020-04-18] MEDS: ASCORBIC ACID 500 MG TABLET PO SCH ×2 (09:58→23:41)
[2020-04-18] MEDS: METOPROLOL TARTRATE 50 MG TABLET PO SCH ×2 (09:59→23:41)
[2020-04-18] MEDS: ISOSORBIDE MONONITRATE 30 MG TABLET PO SCH (09:59)
[2020-04-18] MEDS: ASPIRIN 325 MG TABLET PO SCH (10:00)
[2020-04-18] MEDS: MAGNESIUM GLUCONATE 500 MG TABLET PO SCH (10:00)
[2020-04-18] MEDS: FERROUS SULFATE 325 MG TABLET PO SCH (10:00)
[2020-04-18] MEDS: CHLORHEXIDINE 0.12% ORAL RINSE 60 ML BOTTLE SWISH/SPIT SCH ×2 (10:00→23:41)
[2020-04-18] MEDS: DOCUSATE SODIUM 100 MG CAPSULE PO SCH (10:00)
[2020-04-18] MEDS: PANTOPRAZOLE 40 MG TABLET PO SCH (10:00)
[2020-04-18] MEDS: methylPREDNISolone SOD SUC 40 MG/1 ML VIAL IV SCH ×2 (10:01→23:41)
[2020-04-18] MEDS: ROSUVASTATIN 20 MG TABLET PO SCH (23:40)
[2020-04-18] MEDS: CITALOPRAM 20 MG TABLET PO SCH (23:41)
[2020-04-19] MEDS: ALBUTEROL/IPRATROPIUM 3 ML NEB RESP TX SCH ×4 (01:51→18:39)
[2020-04-19 05:42] LABS: Basophils % 0.1 % (0.0-0.8); Hematocrit 31.7 VOL% (35.7-47.0); Hemoglobin 10.1 GM/DL (12.0-16.0); Immature Granulocytes % 2.2 %; Immature Granulocytes Absolute 0.35 #; Lymphocytes # 0.6 10*3/uL (1.4-4.0); Lymphocytes % 3.6 % (21.3-54.2); Mean Corpuscular HGB Conc 31.9 GM/DL (32-36); Mean Corpuscular Volume 91.9 FL (87-102); Mean Platelet Volume 9.9 FL (9.6-12.0); Monocytes % 3.1 % (1.7-12.7); Platelet Count 389 T/CUMM (130-400); Red Blood Count 3.45 MC/CUMM (3.8-5.5); Red Cell Distribution Width 15.5 % (9.3-17.3)
[2020-04-19 06:13] LABS: Hypochromasia 1+; Lymphocytes 4 % (20-55); Microcytosis 1+; Platelet Estimate Adequate; Segmented Neutrophils 94 % (50-85); Total Cells Counted 100
[2020-04-19 06:15] LABS: Alanine Aminotransferase 56 U/L (13-56); Albumin 2.8 G/DL (3.4-5.0); Alkaline Phosphatase 79 U/L (45-117); Aspartate Amino Transferase 23 U/L (0-37); Bilirubin,Indirect 0.5 MG/DL (0.0-1.0); Blood Urea Nitrogen 26 MG/DL (7-18); Carbon Dioxide 32 MMOL/L (21-32); Estimated Glom Filtration Rate 74 ML/MIN; Glucose 110 MG/DL (74-106); Osmolality,Calculated 280.7 MOS/KG (273-304); Potassium 4.1 MMOL/L (3.5-5.1); Sodium 138 MMOL/L (136-145); Total Protein 5.6 G/DL (6.4-8.3)
[2020-04-19] MEDS ORDERED: ALBUTEROL/IPRATROPIUM 3 ML NEB RESP TX ONE (07:12)
[2020-04-19] MEDS: MAGNESIUM GLUCONATE 500 MG TABLET PO SCH (10:20)
[2020-04-19] MEDS: FERROUS SULFATE 325 MG TABLET PO SCH (10:20)
[2020-04-19] MEDS: ASPIRIN 325 MG TABLET PO SCH (10:21)
[2020-04-19] MEDS: DOCUSATE SODIUM 100 MG CAPSULE PO SCH (10:21)
[2020-04-19] MEDS: PANTOPRAZOLE 40 MG TABLET PO SCH (10:21)
[2020-04-19] MEDS: ISOSORBIDE MONONITRATE 30 MG TABLET PO SCH (10:21)
[2020-04-19] MEDS: METOPROLOL TARTRATE 50 MG TABLET PO SCH ×2 (10:21→22:43)
[2020-04-19] MEDS: ASCORBIC ACID 500 MG TABLET PO SCH ×2 (10:22→22:42)
[2020-04-19] MEDS: CHLORHEXIDINE 0.12% ORAL RINSE 60 ML BOTTLE SWISH/SPIT SCH ×2 (10:22→22:43)
[2020-04-19] MEDS: methylPREDNISolone SOD SUC 40 MG/1 ML VIAL IV SCH ×2 (10:24→22:42)
[2020-04-19] MEDS: CITALOPRAM 20 MG TABLET PO SCH (22:42)
[2020-04-19] MEDS: ROSUVASTATIN 20 MG TABLET PO SCH (22:43)
[2020-04-20] MEDS: ALBUTEROL/IPRATROPIUM 3 ML NEB RESP TX SCH (02:48)
[2020-04-20 03:40] VITALS: BP 127/63
[2020-04-20] MEDS ORDERED: MAGNESIUM SULFATE 1 GM/2 ML VIAL ONE (03:43)
[2020-04-20] MEDS ORDERED: EPINEPHrine 1 MG/10 ML SYRINGE ONE (03:43)
[2020-04-20] MEDS ORDERED: DEXTROSE 50% 25 GM/50 ML SYRINGE IV ONE (03:43)
[2020-04-20] MEDS ORDERED: CALCIUM CHLORIDE 1,000 MG/10 ML SYRINGE IV ONE (03:43)
[2020-04-20] MEDS ORDERED: SODIUM BICARBONATE 50 MEQ/50 ML SYRINGE IV ONE (03:43)
== END 2020-04-20 06:10 | disposition expired | DRG 234 ==
LOC: EDUNIT# → EDBD → N.EDINP 09:56 → N.ED 09:56 → N.EDINP 17:54 → N.TELES 17:58 → N.CVR 04-13 11:15 → N.ICU 04-14 07:26 → N.TELES 04-15 11:33
PROVIDERS: ADMIT Family Medicine; ATTEND Family Medicine
PROC: CLCCHCL (ICD-10-PCS; 2020-04-11 08:45)